=== PATIENT | female | born 1950 | race Caucasian/White ===

== ENCOUNTER → 2019-04-29 | Outpatient (CLI) | payer OTHER ==
[~2019-04-29] MED LIST: ADAL40PE SQ; CARB1TAB18 PO; DIVA500T69 PO; FENO134C PO; FOLI1TAB15 PO; LEVO150T11 PO; METH2.5T6 PO; PANT20TA12 PO; PRAV80TA21 PO; QUET100T70 PO; TYL3 PO
== END | disposition home or self-care (01) ==
LOC: RAH 13:02
PROVIDERS: ATTEND Nurse Practitioner Family
DX: Z12.31 Encounter for screening mammogram for malignant neoplasm of breast (principal)
CPT/HCPCS: 77067

== ENCOUNTER 2022-11-01 16:47 | Emergency (ER) | payer OTHER ==
[~2022-11-01] VITALS: Ht 175.3 cm; Wt 77.1 kg
[~2022-11-01 16:47] MED LIST changes: -CARB1TAB18 PO; +CARB1TAB33 PO; -FENO134C PO; +FENO134C21 PO; -PANT20TA12 PO; +PANT20TA18 PO; +QUET100T34 PO; -QUET100T70 PO
[2022-11-01] MEDS ORDERED: KETOROLAC 15MG/ML VIAL (15MG/ML) ONE (17:51)
[2022-11-01] MEDS ORDERED: 0.9%NACL 1000ML 1,000 ML IV ONE ×2 (17:51→18:00)
[2022-11-01] MEDS ORDERED: KETOROLAC 15MG/ML VIAL (15MG/ML) IV ONE (18:00)
[2022-11-01 18:35] LABS: BASOPHILS % (AUTO) 0.3 % (0.0-5.0); EOSINOPHILS % (AUTO) 0.2 % (0.0-8.0); HEMATOCRIT 42.8 % (36-48); LYMPHOCYTES % (AUTO) 6.2 % (21.0-51.0); MEAN CORPUSCULAR HEMOGLOBIN 29.6 pg (27.0-33.0); MEAN CORPUSCULAR HGB CONC 33.6 g/dL (32.0-36.0); MEAN CORPUSCULAR VOLUME 87.9 fL (79-99); MONOCYTES % (AUTO) 4.6 % (3.0-13.0); NEUTROPHILS % (AUTO) 88.1 % (40.0-77.0); PLATELET COUNT (AUTO) 189 K/uL (130-400); RED BLOOD CELL COUNT(AUTO) 4.87 MIL/uL (4.00-5.50); RED CELL DISTRIBUTION WIDTH 12.2 % (11.0-15.5); WHITE BLOOD COUNT (AUTO) 14.3 K/uL (4.8-10.8)
[2022-11-01 18:44] LABS: CREATININE 0.7 mg/dL (0.5-1.5); POTASSIUM 3.9 mmol/L (3.5-5.1)
[2022-11-01] MEDS ORDERED: IOHEXOL 350 MG/ML 100ML INFUS..BTL IV ONE (18:45)
[2022-11-01] MEDS ORDERED: PROCHLORPERAZINE 10MG/2ML INJ ONE (18:48)
[2022-11-01 18:53] LABS: ALBUMIN 3.2 g/dL (3.5-5.0); TOTAL PROTEIN, SERUM 6.5 g/dL (6.0-8.3)
[2022-11-01] MEDS ORDERED: PROCHLORPERAZINE EDISYLATE 5 MG/ML 2 ML VIAL IVP ONE (19:00)
[2022-11-01] MEDS ORDERED: DiphenhydrAMINE HCL 50 MG/ML VIAL IV ONE (19:00)
[2022-11-01 20:55] LABS: APPEARANCE,URINE CLEAR (CLEAR); BILIRUBIN,URINE NEGATIVE (NEGATIVE); COLOR,URINE COLORLESS (YELLOW); GLUCOSE, URINE (UA) NEGATIVE (NEGATIVE); KETONES,URINE NEGATIVE (NEGATIVE); LEUKOCYTE ESTERASE ,URINE NEGATIVE Leu/uL (NEGATIVE); NITRATE,URINE NEGATIVE (NEGATIVE); OCCULT BLOOD,URINE NEGATIVE (NEGATIVE); PROTEIN,URINE NEGATIVE (NEGATIVE); UROBILINOGEN,URINE 0.2 mg/dL (0.2-1.0)
[2022-11-01 21:30] VITALS: BP 137/67
== END 2022-11-01 22:21 | disposition home or self-care (01) ==
LOC: EDH 16:47
DX: R42 Dizziness and giddiness (principal); R56.9 Unspecified convulsions; E78.00 Pure hypercholesterolemia, unspecified; I12.0 Hypertensive chronic kidney disease with stage 5 chronic kidney disease or end stage renal disease; E11.22 Type 2 diabetes mellitus with diabetic chronic kidney disease; N18.6 End stage renal disease; Z90.710 Acquired absence of both cervix and uterus
CPT/HCPCS: 99285; 70450; 96374; 96375; 96361; 80164; 84484; 80053; 85025; 82948; 81003; 36415; 74177; 93005; J1200; J7030; J0780; J1885; Q9967

== ENCOUNTER → 2024-04-22 | Outpatient (CLI) | payer OTHER | END | disposition home or self-care (01) | LOC: RAH 12:42 | PROVIDERS: ATTEND Family Medicine | DX: Z12.31 Encounter for screening mammogram for malignant neoplasm of breast (principal); R92.323 Mammographic fibroglandular density, bilateral breasts | CPT/HCPCS: 77067 ==

== ENCOUNTER 2024-11-17 11:10 | Emergency (ER) | payer OTHER ==
[~2024-11-17] VITALS: Ht 175.3 cm; Wt 65.3 kg
[2024-11-17 11:54] LABS: BASOPHILS # (AUTO) 0.06 K/uL (0.00-0.20); BASOPHILS % (AUTO) 0.9 % (0.0-5.0); EOSINOPHILS # (AUTO) 0.24 K/uL (0.00-0.70); EOSINOPHILS % (AUTO) 3.7 % (0.0-8.0); HEMATOCRIT 39.9 % (36-48); IMMATURE GRANULOCYTE ABSOLUTE 0.03 K/uL (0-1); LYMPHOCYTES # (AUTO) 1.5 K/uL (1.0-4.8); LYMPHOCYTES % (AUTO) 23.1 % (21.0-51.0); MEAN CORPUSCULAR HEMOGLOBIN 29.3 pg (27.0-33.0); MEAN CORPUSCULAR HGB CONC 32.1 g/dL (32.0-36.0); MEAN CORPUSCULAR VOLUME 91.3 fL (79-99); MONOCYTES # (AUTO) 0.4 K/uL (0.1-1.0); MONOCYTES % (AUTO) 6.6 % (3.0-13.0); NEUTROPHILS # (AUTO) 4.3 K/uL (1.8-7.7); NEUTROPHILS % (AUTO) 65.2 % (40.0-77.0); PLATELET COUNT (AUTO) 177 K/uL (130-400); RED BLOOD CELL COUNT(AUTO) 4.37 MIL/uL (4.00-5.50); RED CELL DISTRIBUTION WIDTH 13.1 % (11.0-15.5); WHITE BLOOD COUNT (AUTO) 6.6 K/uL (4.8-10.8)
--- NOTE | 2024-11-17 12:07 | ERN ---
ED Note History of Present Illness Stated Complaint: NAUSEA,VOMTING,DIARRHEA Chief Complaint: Nausea,Vomiting,Diarrhea Time Seen by MD: 11:18 Dictation: 74-year-old female with a history of HTN, DM, RA, Parkinson's disease, epilepsy presents to the ED for evaluation of abdominal pain. Patient reports sweats, chills, nausea, vomiting, diarrhea and weight loss, but denies any other associated symptoms at this time. Patient states she has lost 20 lb. DILCIA- Dr. Morales. Allergies: Coded Allergies: phenytoin (Unverified Allergy, Unknown, increases seizures, 06/22/15) Home Meds Active Scripts Ondansetron (Ondansetron Odt) 4 Mg Tab.rapdis, 4 MG PO BID for vomiting for 5 Days, #10 TAB Prov:DANIELLE IRBY MD 11/17/24 Reported Medications Pantoprazole Sodium (Pantoprazole Sodium) 20 Mg Tablet.dr, 20 MG PO BID, TAB 08/10/15 Acetaminophen with Codeine (Tylenol with Codeine #3) 1 Tab Tab, 1 TAB PO [id number], TAB 08/10/15 Adalimumab (Humira) 40 Mg/0.8 Ml Pen.ij.kit, 40 MG SQ QOWEEK, KIT 06/22/15 Fenofibrate,Micronized (Fenofibrate) 134 Mg Capsule, 134 MG PO DAILY, CAP 06/22/15 Quetiapine Fumarate (Quetiapine Fumarate) 100 Mg Tablet, 100 MG PO BID, TAB 06/22/15 Pravastatin Sodium (Pravastatin Sodium) 80 Mg Tablet, 80 MG PO HS, TAB 06/22/15 Divalproex Sodium (Depakote ER) 500 Mg Tab.er.24h, 500 MG PO BID, TAB 06/22/15 Carbidopa/Levodopa (Carbidopa-Levodopa 10-100 Tab) 1 Each Tablet, 1 EACH PO TID, TAB 06/22/15 Methotrexate Sodium (Methotrexate) 2.5 Mg Tablet, 2.5 MG PO DAILY, TAB 06/22/15 Levothyroxine Sodium (Levothyroxine Sodium) 150 Mcg Tablet, 150 MCG PO DAILY, TAB 06/22/15 Folic Acid (Folic Acid) 1 Mg Tablet, 1 MG PO DAILY, TAB 06/22/15 Past Medical History Past Medical History: CVA, Diabetes-Type II, High Cholesterol, Hypertension, Renal Disese, Seizure Surgical History: Appendectomy, Hysterectomy, Tonsillectomy, Cholecystectomy Social History: Negative, Lives with family History: Not Applicable Review of System Dictation Constitutional: Positive for weight loss, chills, sweats Eyes: Negative for injury, pain,redness, and discharge ENT: Negative for injury,pain or swelling Cardiovascular: Negative for chest pain, palpitations, and edema Respiratory: Negative for shortness of breath, cough, and wheezing, Abdomen/GI: Positive for abdominal pain, nausea, vomiting and diarrhea Back: Negative for injury and pain : Negative for injury, bleeding and discharge MS/Extremity: Negative for injury and deformity Skin: Negative for rash, and discoloration Neuro: Negative for headache, weakness, numbness, tingling, and seizure Psych: Negative for suicide ideation, homicidal ideation, and hallucinations Initial Vital Sign VS Vital Signs Date Time Temp Pulse Resp B/P (MAP) Pulse Ox O2 Delivery O2 Flow Rate FiO2 11/17/24 11:12 97.2 82 20 123/61 99 0 11/17/24 12:01 Room Air* 21 Physical Exam Dictation General: awake, alert Head/Face: Normocephalic, atraumatic Eyes: PERRL, EOMI, vision at baseline ENT: oral cavity clear, TMs clear, no signs of infection Neck: Trachea midline, supple, no nuchal rigidity Cardiovascular: RRR, normal S1/S2, No MRGs, no JVD Respiratory: CTAB, no respiratory distress, No rales or wheezes Abdomen: Soft, non-tender, non-distended, normal bowel sounds, no guarding or rebound. Skin: Warm, dry, normal turgor, no rash MS/Extremity: Pulses equal, no cyanosis, neurovascular intact, FROM Neuro: COAx4, GCS 15, strength 5/5, CN 2-12 intact, normal cerebellar exam, normal gait, Psych: Normal behavior, mood, and affect normal Results (Laboratory/Radiology) Laboratory/Radiology Laboratory Tests Test 11/17/24 11:45 11/17/24 11:52 White Blood Count 6.6 K/uL (4.8-10.8) Red Blood Count 4.37 MIL/uL (4.00-5.50) Hemoglobin 12.8 g/dL (12.0-16.0) Hematocrit 39.9 % (36-48) Mean Corpuscular Volume 91.3 fL (79-99) Mean Corpuscular Hemoglobin 29.3 pg (27.0-33.0) Mean Corpuscular Hemoglobin Concent 32.1 g/dL (32.0-36.0) Red Cell Distribution Width 13.1 % (11.0-15.5) Platelet Count 177 K/uL (130-400) Mean Platelet Volume 10.3 fL (7.5-10.5) Immature Granulocyte % (Auto) 0.5 % (0-1) Neutrophils (%) (Auto) 65.2 % (40.0-77.0) Lymphocytes (%) (Auto) 23.1 % (21.0-51.0) Monocytes (%) (Auto) 6.6 % (3.0-13.0) Eosinophils (%) (Auto) 3.7 % (0.0-8.0) Basophils (%) (Auto) 0.9 % (0.0-5.0) Neutrophils # (Auto) 4.3 K/uL (1.8-7.7) Lymphocytes # (Auto) 1.5 K/uL (1.0-4.8) Monocytes # (Auto) 0.4 K/uL (0.1-1.0) Eosinophils # (Auto) 0.24 K/uL (0.00-0.70) Basophils # (Auto) 0.06 K/uL (0.00-0.20) Absolute Immature Granulocyte (auto 0.03 K/uL (0-1) Nucleated Red Blood Cells 0.0 % (0.0-0.19) Sodium Level 139 mmol/L (136-145) Potassium Level 4.5 mmol/L (3.5-5.1) Chloride Level 104 mmol/L (101-111) Carbon Dioxide Level 28 mmol/L (21-32) Blood Urea Nitrogen 15 mg/dL (7-18) Creatinine 0.6 mg/dL (0.5-1.0) Glomerular Filtration Rate Calc 95 mL/min (>90) Random Glucose 149 mg/dL (70-105) H Total Calcium 8.8 mg/dL (8.5-10.1) Total Bilirubin 0.8 mg/dL (0.2-1.0) Direct Bilirubin 0.1 mg/dL (0.0-0.3) Aspartate Amino Transf (AST/SGOT) 23 U/L (10-37) Alanine Aminotransferase (ALT/SGPT) 31 U/L (12-78) Alkaline Phosphatase 97 U/L (50-136) Troponin I High Sensitivity 14 ng/L (4-50) B-Type Natriuretic Peptide 17 pg/mL (0-100) Total Protein 5.9 g/dL (6.0-8.3) L Albumin 3.3 g/dL (3.5-5.0) L Urine Color LIGHT-YELLOW (YELLOW) Urine Appearance CLEAR (CLEAR) Urine pH 5.0 (5.0-8.0) Urine Specific [place] 1.014 (1.001-1.031) Urine Protein NEGATIVE mg/dL (NEGATIVE) Urine Glucose (UA) NEGATIVE mg/dL (NEGATIVE) Urine Ketones NEGATIVE mg/dL (NEGATIVE) Urine Occult Blood NEGATIVE (NEGATIVE) Urine Nitrate NEGATIVE (NEGATIVE) Urine Bilirubin NEGATIVE mg/dL (NEGATIVE) Urine Urobilinogen 0.2 mg/dL (0.2-1.0) Urine Leukocyte Esterase 25 [place]/uL (NEGATIVE) H Urine RBC 0-1 /HPF (0-1) Urine WBC 2-5 /HPF (0-1) H Urine Squamous Epithelial Cells FEW /HPF (0-2) Urine Bacteria RARE /HPF (None Seen) Labs Reviewed?: Yes EKG Comment: EKG 11/17/2024 time 12:07 p.m. ventricular rate 72, LA 132, QRS D 82, QT 376. Sinus rhythm, atrial premature complex. No STEMI CT Scan Comment: REASON: abdominal pain ORDERING PHYSICIAN: DANIELLE IRBY MD PROCEDURE: ABD PELVWO - CT ABD/PEL WO CON RENAL/APPY CT ABD/PEL WO CON RENAL/APPY REASON: abdominal pain COMPARISON: 11/01/2022 FINDINGS: Lung bases are clear. There are no focal liver lesions. There are normal-appearing kidneys.. Spleen and pancreas appear unremarkable. There has been a previous cholecystectomy. Bowel loops appear unremarkable. The appendix was not separately identified. There is no secondary CT evidence of appendicitis such as appendicolith or phlegmon. There is no evidence of free fluid or intraperitoneal air. There are no focal fluid collections. Aorta and retroperitoneum appear normal as do pelvic soft tissue structures. The anterior abdominal wall is intact. Osseous structures appear unremarkable. IMPRESSION: 1. Absent gallbladder. 2. Otherwise unremarkable noncontrast CT abdomen and pelvis. CT was performed with one or more following dose reduction techniques: automated exposure control, adjustment of the mA and kv according to patient's size, or use of a iterative reconstruction technique. DICTATED BY: ASAEL COPPOLA MD DATE: 11/17/24 1307 ED Course ED Course Orders Procedure Category Date Status Time 12 Lead Ekg Tracing- EKG 11/17/24 Complete Technical 11:34 B-Type Natriuretic LAB 11/17/24 Complete Peptide 11:34 Basic Metabolic Panel LAB 11/17/24 Complete 11:34 Cbc With Differential LAB 11/17/24 Complete 11:34 Hepatic Function Panel LAB 11/17/24 Complete 11:34 Urinalysis Profile LAB 11/17/24 Complete 11:34 Troponin I High LAB 11/17/24 Complete Sensitivity 11:34 Ct Abd/Pel Wo Con CT 11/17/24 Resulted Renal/Appy 11:34 Ondansetron 4mg Inj PHA 11/17/24 Complete (Zofran 4mg Inj) 12:30 0.9%Nacl 1000ml (Ns PHA 11/17/24 Complete 1000ml) 12:30 Current Medications Medications (Trade) Dose Ordered Sig/Man Route PRN Reason Start Time Stop Time Status Last Admin Dose Admin Ondansetron HCl (zoFRAN 4MG INJ) 4 mg ONCE ONCE IVP 11/17/24 12:30 11/17/24 12:31 DC 11/17/24 12:24 Sodium Chloride 1,000 ml @ 0 mls/hr ONCE ONCE IV 11/17/24 12:30 11/17/24 12:31 DC 11/17/24 12:24 Vital Signs Date Time Temp Pulse Resp B/P (MAP) Pulse Ox O2 Delivery O2 Flow Rate FiO2 11/17/24 14:10 98.1 78 14 127/69 99 Room Air* 0 21 11/17/24 12:01 98.8 73 16 123/72 Room Air* 0 21 11/17/24 11:12 97.2 82 20 123/61 99 0 Medical Decision Making MDM MDM: Differential diagnosis: Abdominal pain, acute gastroenteritis Rationale: Tests considered and ordered secondary to shared decision making include: labs, ECG and radiology Risk of complication and/or morbidity or mortality of patient management: None Medications-Per medication reconciliation Need for hospitalization: Patient does not meet criteria for hospitalization. Need for emergency major/minor surgery: No There are no social concerns with this patient. I independently interpreted the test that were performed, results were reviewed by me and considered findings on radiology if ordered. DX & DISP Disposition: Discharge Departure Impression: Primary Impression: Acute gastroenteritis Condition: Stable Scripts Ondansetron (Ondansetron Odt) 4 Mg Tab.rapdis 4 MG PO BID for vomiting for 5 Days, #10 TAB Prov: DANIELLE IRBY MD 11/17/24 Referrals: DASHA JARAMILLO (PCP) DANIELLE IRBY MD Nov 17, 2024 12:07
[2024-11-17 12:08] LABS: APPEARANCE,URINE CLEAR (CLEAR); BILIRUBIN,URINE NEGATIVE (NEGATIVE); COLOR,URINE LIGHT-YELLOW (YELLOW); GLUCOSE, URINE (UA) NEGATIVE (NEGATIVE); KETONES,URINE NEGATIVE (NEGATIVE); LEUKOCYTE ESTERASE ,URINE 25 Leu/uL (NEGATIVE); NITRATE,URINE NEGATIVE (NEGATIVE); OCCULT BLOOD,URINE NEGATIVE (NEGATIVE); PROTEIN,URINE NEGATIVE (NEGATIVE); UROBILINOGEN,URINE 0.2 mg/dL (0.2-1.0)
[2024-11-17 12:15] LABS: B-TYPE NATRIURETIC PEPTIDE 17 pg/mL (0-100)
[2024-11-17 12:17] LABS: ADD UA MICROSCOPIC YES
[2024-11-17 12:19] LABS: BACTERIA,URINE RARE /HPF (None Seen); MUCUS,URINE RARE LPF (None Seen); RBC,URINE 0-1 /HPF (0-1); SQUAMOUS EPITHELIAL CELL,UR FEW /HPF (0-2)
[2024-11-17] MEDS: ondanSETRON 4MG INJ IVP ONE (12:24)
[2024-11-17] MEDS: 0.9%NACL 1000ML 1,000 ML IV ONE (12:24)
[2024-11-17 12:32] LABS: CREATININE 0.6 mg/dL (0.5-1.0); POTASSIUM 4.5 mmol/L (3.5-5.1)
[2024-11-17 12:37] LABS: ALBUMIN 3.3 g/dL (3.5-5.0); BILIRUBIN,DIRECT 0.1 mg/dL (0.0-0.3); BILIRUBIN,TOTAL 0.8 mg/dL (0.2-1.0); TOTAL PROTEIN, SERUM 5.9 g/dL (6.0-8.3)
--- NOTE | 2024-11-17 12:42 | EKG ---
[facility] Test Date: 2024-11-17 Test Time: 12:07:52 Pat Name: GABRIEL HAN Department: ED Room: Gender: F Bias Binding Folder: EMS STUDENT : 1950 Requested By: DANIELLE IRBY Order Number: [id number] Reading MD: Perez Stark Measurements Intervals [place] Rate: 72 P: 65 DC: 132 QRS: 75 QRSD: 82 T: 60 QT: 376 QTc: 406 Interpretive Statements Sinus rhythm Atrial premature complex Compared to ECG 11/01/2022 17:03:31 No significant changes Electronically Signed On 11-17-2024 19:19:30 [employer] CONDITIONING IN[employer] by Perez Stark Please click the below link to view image of tracing.
--- NOTE | 2024-11-17 13:12 | HMCIMG ---
CT ABD/PEL WO CON RENAL/APPY REASON: abdominal pain COMPARISON: 11/01/2022 FINDINGS: Lung bases are clear. There are no focal liver lesions. There are normal-appearing kidneys.. Spleen and pancreas appear unremarkable. There has been a previous cholecystectomy. Bowel loops appear unremarkable. The appendix was not separately identified. There is no secondary CT evidence of appendicitis such as appendicolith or phlegmon. There is no evidence of free fluid or intraperitoneal air. There are no focal fluid collections. Aorta and retroperitoneum appear normal as do pelvic soft tissue structures. The anterior abdominal wall is intact. Osseous structures appear unremarkable. IMPRESSION: 1. Absent gallbladder. 2. Otherwise unremarkable noncontrast CT abdomen and pelvis. CT was performed with one or more following dose reduction techniques: automated exposure control, adjustment of the mA and kv according to patient's size, or use of a iterative reconstruction technique.
[2024-11-17] MEDS ORDERED: ONDA-243 PO (14:04)
[2024-11-17 14:10] VITALS: BP 127/69; PULSE 78; RESP 14; TEMP 98.1; O2SAT 99
--- NOTE | 2024-11-17 14:13 | NUR ---
PT STABLE AAOX4 PT GIVEN INSTRUCTIONS FOR HOME, IV D/C CATHETER INTACT PT VERBALIZED UNDERSTANDING. PT TAKEN OUT IN W/C DRIVEN HOME BY .
== END 2024-11-17 14:17 | disposition home or self-care (01) ==
LOC: EDH 11:10
DX: K52.9 Noninfective gastroenteritis and colitis, unspecified (principal); E11.9 Type 2 diabetes mellitus without complications; E78.00 Pure hypercholesterolemia, unspecified; I10 Essential (primary) hypertension; Z79.631 Long term (current) use of antimetabolite agent; Z79.890 Hormone replacement therapy; Z79.899 Other long term (current) drug therapy; Z86.73 Personal history of transient ischemic attack (TIA), and cerebral infarction without residual deficits; Z90.49 Acquired absence of other specified parts of digestive tract; Z90.710 Acquired absence of both cervix and uterus
CPT/HCPCS: 99285; 74176; 96374; 80076; 84484; 80048; 83880; 85025; 81001; 36415; 93005; J7030; J2405